=== PATIENT | female | born 1960 | race Caucasian/White ===

== ENCOUNTER 2024-08-26 13:49 | Emergency (ER) | payer OTHER ==
[~2024-08-26] VITALS: Ht 157.5 cm; Wt 68.2 kg
[2024-08-26 14:18] VITALS: BP 131/65; PULSE 61; RESP 18; TEMP 98.1; O2SAT 98
[2024-08-26] MEDS ORDERED: AMOX-457 PO (15:20)
== END 2024-08-26 15:41 | disposition home or self-care (01) ==
LOC: EMS 13:56
DX: S01.151A Open bite of right eyelid and periocular area, initial encounter (principal); W54.0XXA Bitten by dog, initial encounter; Y93.89 Activity, other specified; Y92.89 Other specified places as the place of occurrence of the external cause; Y99.8 Other external cause status
CPT/HCPCS: 99283; Z7502